=== PATIENT | female | born 1975 | race African-American/Black ===

== ENCOUNTER 2025-08-28 00:16 | Emergency (ER) | payer OTHER, MEDICAID ==
[~2025-08-28] VITALS: Ht 160 cm; Wt 54.0 kg
[2025-08-28 00:35] VITALS: O2SAT 100
[2025-08-28 00:41] VITALS: BP 135/58; PULSE 73; RESP 16; TEMP 36.9; O2SAT 100
[2025-08-28] MEDS: LIDOCAINE 5% PATCH TOP SCH (01:52)
[2025-08-28] MEDS: KETOROLAC 15MG/ML VIAL IM ONE (01:53)
== END 2025-08-28 02:23 | disposition left against medical advice (07) ==
LOC: ER 00:16
DX: M54.89 Other dorsalgia (principal); M54.2 Cervicalgia; I10 Essential (primary) hypertension; Z91.013 Allergy to seafood; V89.2XXA Person injured in unspecified motor-vehicle accident, traffic, initial encounter; Y93.89 Activity, other specified; Y92.410 Unspecified street and highway as the place of occurrence of the external cause; Y99.8 Other external cause status
CPT/HCPCS: 99283; 81025; 96372; J1885